=== PATIENT | female | born 1995 | race Two or more races ===

== ENCOUNTER 2018-11-19 15:22 | Emergency (ER) | payer OTHER ==
--- NOTE | 2018-11-19 17:04 | XRAY Report ---
Reason: cough and right lower chest pain. Procedure Date: 11/19/2018 Accession Number: [id number] / [id number] Procedure: XR - Chest 2 View X-Ray CPT Code: 38729 FULL RESULT: EXAM: CHEST RADIOGRAPHY EXAM DATE: 11/19/2018 04:39 PM. CLINICAL HISTORY: Cough and right lower chest pain. COMPARISON: None available. TECHNIQUE: 2 views. FINDINGS: Heart size is normal. No consolidation, pleural effusion, or pneumothorax. IMPRESSION: Normal 2-view chest radiography. [facility]
[2018-11-19] MEDS ORDERED: HYDROcod/ACETAM 5/325 MG TABLET PO STA (17:26)
--- NOTE | 2018-11-19 17:28 | ED Physician Documentation ---
PD HPI CHEST PAIN - Stated complaint Stated Complaint: COUGH/FEVER/SOA - Chief complaint Chief Complaint: Abd Pain - History obtained from History obtained from: Patient - History of Present Illness Quality: Pain Location: Right chest Similar symptoms before: Has not had sx before - Additional information Additional information: The patient is a 23-year-old female who presents with pain in her right lower chest. The pain is worse with coughing or with laughing. She reports having a cough that has been waxing and waning for the past 3 months. It is occasionally productive of sputum. She reports having a fever last week, and one episode of vomiting last week, but none since. She reports decreased appetite. She denies diarrhea or dysuria. Her last menstrual period ended 2 days ago. Her past medical history is significant for T-cell lymphoma that was diagnosed at age 14. She does not smoke cigarettes, but she does vape. Review of Systems Constitutional: reports: Fever (last week.) Nose: reports: Congestion Throat: reports: Sore throat Cardiac: reports: Chest pain / pressure (Right lower chest.) Respiratory: reports: Cough. denies: Dyspnea GI: reports: Vomiting (Last week, but not recently.). denies: Abdominal Pain, Nausea : reports: LMP (Ended 2 days ago.). denies: Dysuria Skin: denies: Rash Musculoskeletal: denies: Extremity pain Neurologic: denies: Focal weakness, Numbness, Headache PD PAST MEDICAL HISTORY - Past Medical History Past Medical History: Yes Cardiovascular: None Respiratory: None Neuro: None Endocrine/Autoimmune: None Other Past Medical History: T cell lymphoma since age of 14 - Present Medications Home Medications: Ambulatory Orders Medication Instructions Recorded Confirmed Benzonatate [Tessalon Perle] 100 - 200 mg PO TID PRN #30 capsule 11/19/18 Hydrocodone/Acetaminophen 1 - 2 each PO Q6H PRN #14 tablet 11/19/18 [Hydrocodon-Acetaminophen 5-325] Ibuprofen [Motrin] 800 mg PO Q8H PRN #30 tablet 11/19/18 - Allergies Allergies/Adverse Reactions: Allergies Allergy/AdvReac Type Severity Reaction Status Date / Time No Known Drug Allergies Allergy Verified 11/19/18 15:37 - Social History Does the pt smoke?: No Smoking Status: Never smoker Additional Social History: Vapes. PD ED PE NORMAL - Vitals Vital signs reviewed: Yes (Borderline hypertension initially.) - General General: Alert and oriented X 3, Well developed/nourished, Other (Intermittently splints her right lower chest wall with her right hand.) - HEENT HEENT: Atraumatic, Pharynx benign - Neck Neck: No adenopathy, No JVD - Cardiac Cardiac: RRR, No murmur - Respiratory Respiratory: Clear bilaterally, Other (Tenderness to palpation of the right lower chest wall, without focal tenderness over individual ribs.) - Abdomen Abdomen: Soft, Non tender, No organomegaly - Back Back: No CVA TTP - Derm Derm: No rash - Extremities Extremities: No edema, No calf tenderness / cord - Neuro Neuro: Alert and oriented X 3, No motor deficit, Normal speech Results - Vitals Vitals: Oxygen O2 Source Room air - Labs Labs: Laboratory Tests 11/19/18 17:55 WBC 4.2 L RBC 4.63 Hgb 14.2 Hct 41.2 MCV 89.0 MCH 30.7 MCHC 34.5 RDW 13.0 Plt Count 240 MPV 8.2 Neut # (Auto) 2.0 Lymph # (Auto) 1.6 [place] # (Auto) 0.3 Eos # (Auto) 0.2 Baso # (Auto) 0.0 Absolute Nucleated RBC 0.00 Nucleated RBC % 0.0 - Rads (name of study) CXR Radiology: Prelim report reviewed, EMP read contemporaneously, See rad report (Normal 2 view chest radiography.) PD MEDICAL DECISION MAKING - ED course Complexity details: reviewed results, re-evaluated patient, considered differential, d/w patient, d/w family ED course: The patient's presentation is most consistent with costochondritis. Chest x-ray reveals no evidence of pneumonia, pneumothorax, and I doubt pulmonary embolus. CBC reveals a normal white blood cell count of 4.2. Treatment in the emergency department included administration of Vicodin, one tablet orally. She is being discharged with prescription for ibuprofen, Tessalon, and Vicodin, 14 tablets. I discussed with her and her mother the diagnosis, symptomatic treatment and outpatient follow-up, as well as potentially worrisome signs or symptoms that should prompt reevaluation in the emergency department. Departure - Departure Disposition: 01 Home, Self Care Clinical Impression: Costochondritis, acute Condition: Stable Instructions: ED Chest Pain Costochondritis Prescriptions: Benzonatate [Tessalon Perle] 100 - 200 mg PO TID PRN #30 capsule PRN Reason: Cough Hydrocodone/Acetaminophen [Hydrocodon-Acetaminophen 5-325] 1 - 2 each PO Q6H PRN #14 tablet PRN Reason: pain Ibuprofen [Motrin] 800 mg PO Q8H PRN #30 tablet PRN Reason: PAIN &/OR FEVER Comments: You can use ibuprofen, up to 800 mg 3 times daily for its anti-inflammatory effect. You can use Tessalon as prescribed if needed for cough. He can use Vicodin as prescribed if needed for more severe pain. Follow-up with primary physician within 1-2 weeks. Call to schedule appointment. Return to the emergency department if you develop increasing pain, shortness of breath, a rash in the distribution where pain occurs, or otherwise worsening symptoms. Forms: Activity restrictions Discharge Date/Time: 11/19/18 18:35
[2018-11-19 18:00] LABS: BASOPHILS % (AUTO) 1.2 %; EOSINOPHILS # (AUTO) 0.2 10^3/uL (0.0-0.7); HGB - HEMOGLOBIN 14.2 g/dL (12.0-16.0); LYMPHOCYTES # (AUTO) 1.6 10^3/uL (1.5-3.5); MEAN CORPUSCULAR HEMOGLOBIN 30.7 pg (27.0-31.0); MEAN CORPUSCULAR HGB CONC 34.5 g/dL (32.0-36.0); MEAN PLATELET VOLUME 8.2 fL (7.9-10.8); MONOCYTES # (AUTO) 0.3 10^3/uL (0.0-1.0); MONOCYTES % (AUTO) 8.3 %; NEUTROPHILS % (AUTO) 47.5 %; PLT - PLATELET COUNT 240 10^3/uL (130-450); RED BLOOD COUNT 4.63 10^6/uL (4.20-5.40); WHITE BLOOD COUNT 4.2 x10^3/uL (4.8-10.8)
[2018-11-19 18:30] VITALS: BP 128/91
== END 2018-11-19 18:35 | disposition home or self-care (01) ==
LOC: ED 15:22
DX: M94.0 Chondrocostal junction syndrome [Tietze] (principal)
CPT/HCPCS: 36415; 71046; 85025; 99283; A9270

== ENCOUNTER 2019-06-14 21:02 | Emergency (ER) | payer OTHER ==
[2019-06-14] MEDS ORDERED: HYDROmorphone 1 MG/ML CARPUJECT IVP STA (21:22)
[2019-06-14] MEDS ORDERED: ONDANSETRON 4 MG/2 ML VIAL IVP STA (21:22)
--- NOTE | 2019-06-14 21:26 | ED Physician Documentation ---
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 She says is worse at night and is keeping her up. She is been nauseous with poor appetite. It does get worse after eating. She is had some loose stools. She has no concern for .) Review of Systems Ten Systems: 10 systems reviewed and negative Constitutional: denies: Fever, Chills Cardiac: denies: Chest pain / pressure, Palpitations Respiratory: denies: Dyspnea, Cough GI: reports: Abdominal Pain, Nausea, Diarrhea. denies: Vomiting PD PAST MEDICAL HISTORY - Past Medical History Cardiovascular: None Respiratory: None Neuro: None Endocrine/Autoimmune: None - Present Medications Home Medications: Ambulatory Orders Medication Instructions Recorded Confirmed Benzonatate [Tessalon Perle] 100 - 200 mg PO TID PRN #30 capsule 11/19/18 Hydrocodone/Acetaminophen 1 - 2 each PO Q6H PRN #14 tablet 11/19/18 [Hydrocodon-Acetaminophen 5-325] Ibuprofen [Motrin] 800 mg PO Q8H PRN #30 tablet 11/19/18 - Allergies Allergies/Adverse Reactions: Allergies Allergy/AdvReac Type Severity Reaction Status Date / Time No Known Drug Allergies Allergy Verified 11/19/18 15:37 - Social History Does the pt smoke?: No Smoking Status: Never smoker PD ED PE NORMAL - Vitals Vital signs reviewed: Yes - General General: Alert and oriented X 3, No acute distress - HEENT HEENT: Other (She is worried because she thinks her eyes are yellow, she is not icteric) - Neck Neck: Supple, no meningeal sign, No bony TTP - Cardiac Cardiac: RRR, No murmur - Respiratory Respiratory: No respiratory distress, Clear bilaterally - Abdomen Abdomen: Other (Modest right upper quadrant tenderness with equivocal Sarkar sign. No right lower quadrant tenderness.) - Back Back: No CVA TTP, No spinal TTP - Derm Derm: Normal color, Warm and dry - Extremities Extremities: No edema, No calf tenderness / cord - Neuro Neuro: Alert and oriented X 3, Normal speech Results - Vitals Vitals: Vital Signs - 24 hr 06/14/19 21:06 Temperature 36.6 C Heart Rate 85 Respiratory 14 Rate Blood Pressure 120/96 H O2 Saturation 100 Oxygen O2 Source Room air - Labs Labs: Laboratory Tests 06/14/19 06/14/19 06/14/19 21:30 21:32 21:32 WBC 5.5 RBC 4.63 Hgb 14.1 Hct 42.8 MCV 92.4 MCH 30.5 MCHC 32.9 RDW 12.6 Plt Count 230 MPV 10.1 Neut # (Auto) 2.8 Lymph # (Auto) 1.9 [place] # (Auto) 0.5 Eos # (Auto) 0.2 Baso # (Auto) 0.0 Absolute Nucleated RBC 0.00 Nucleated RBC % 0.0 Sodium 142 Potassium 3.9 Chloride 106 Carbon Dioxide 25 Anion Gap 11.0 BUN 11 Creatinine 0.8 Estimated GFR (MDRD) 91 Glucose 88 Calcium 9.1 Total Bilirubin 0.7 AST 20 ALT 20 Alkaline Phosphatase 63 Total Protein 7.5 Albumin 4.2 Globulin 3.3 Albumin/Globulin Ratio 1.3 Lipase 23 Urine Color YELLOW Urine Clarity CLEAR Urine pH 6.5 Ur Specific [place] 1.020 Urine Protein NEGATIVE Urine Glucose (UA) NEGATIVE Urine Ketones NEGATIVE Urine Occult Blood LARGE H Urine Nitrite NEGATIVE Urine Bilirubin NEGATIVE Urine Urobilinogen 0.2 (NORMAL) Ur Leukocyte Esterase NEGATIVE Urine RBC TNTC H Urine WBC 0-3 Ur Squamous Epith Cells FEW Squamous Urine Bacteria Rare Urine Mucus Few Strands Ur Microscopic Review INDICATED Urine Culture Comments NOT INDICATED Urine HCG, Qual NEGATIVE PD MEDICAL DECISION MAKING - ED course ED course: 23-year-old woman with history of cutaneous T-cell lymphoma presents with 4 days of right-sided abdominal pain, initial examination was most consistent with biliary source, however her labs and ultrasound were negative for same. She was feeling better after medications. Given the hematuria and history of T-cell lymphoma this was followed by a CT scan to look for evidence of ureteral stone or systemic recurrence of her T-cell lymphoma. Case signed out by me to Dr. Talbot at 11 PM to follow-up on the CT anticipate disposition her at that point. If there are no significant findings she can safely be discharged. Departure - Departure Clinical Impression: Abdominal pain Condition: Good Record reviewed to determine appropriate education?: Yes Instructions: ED Abdominal Pain Appendx Poss Comments: Return in 12 hours if not better, anytime for new or worsening symptoms.
[2019-06-14 21:39] LABS: BASOPHILS % (AUTO) 0.5 %; EOSINOPHILS # (AUTO) 0.2 10^3/uL (0.0-0.7); EOSINOPHILS % (AUTO) 3.8 %; HGB - HEMOGLOBIN 14.1 g/dL (12.0-16.0); LYMPHOCYTES # (AUTO) 1.9 10^3/uL (1.5-3.5); LYMPHOCYTES % (AUTO) 34.7 %; MEAN CORPUSCULAR HEMOGLOBIN 30.5 pg (27.0-31.0); MEAN CORPUSCULAR HGB CONC 32.9 g/dL (32.0-36.0); MEAN CORPUSCULAR VOLUME 92.4 fL (81.0-99.0); MEAN PLATELET VOLUME 10.1 fL (7.9-10.8); MONOCYTES # (AUTO) 0.5 10^3/uL (0.0-1.0); MONOCYTES % (AUTO) 9.5 %; NEUTROPHILS # (AUTO) 2.8 10^3/uL (1.5-6.6); NEUTROPHILS % (AUTO) 51.3 %; PLT - PLATELET COUNT 230 10^3/uL (130-450); RED BLOOD COUNT 4.63 10^6/uL (4.20-5.40); RED CELL DISTRIBUTION WIDTH 12.6 % (12.0-15.0); WHITE BLOOD COUNT 5.5 x10^3/uL (4.8-10.8)
[2019-06-14 21:48] LABS: BILIRUBIN,URINE NEGATIVE (NEGATIVE); GLUCOSE, URINE (UA) NEGATIVE (NEGATIVE); KETONES,URINE (UA) NEGATIVE (NEGATIVE); LEUKOCYTE ESTERASE, URINE NEGATIVE (NEGATIVE); NITRITE,URINE NEGATIVE (NEGATIVE); OCCULT BLOOD,URINE LARGE (NEGATIVE); PH,URINE 6.5 PH (5.0-7.5); PROTEIN,URINE NEGATIVE (NEGATIVE); UROBILINOGEN,URINE 0.2 (NORMAL) E.U./dL (NORMAL)
[2019-06-14 21:53] LABS: ALBUMIN 4.2 g/dL (3.2-5.5); ALBUMIN/GLOBULIN RATIO 1.3 (1.0-2.2); BILIRUBIN,TOTAL 0.7 mg/dL (0.2-1.0); CALCIUM 9.1 mg/dL (8.5-10.3); CREATININE 0.8 mg/dL (0.4-1.0); TOTAL PROTEIN 7.5 g/dL (6.7-8.2)
[2019-06-14 21:56] LABS: BACTERIA,URINE Rare /HPF (None Seen); CLARITY,URINE CLEAR (CLEAR); HCG UR QUAL NEGATIVE; RBC,URINE TNTC /HPF (0-5); SQUAMOUS EPITHELIAL CELL,UR FEW Squamous (<= Few)
[2019-06-14 21:57] LABS: MUCUS,URINE Few Strands
[2019-06-14] MEDS ORDERED: KETOROLAC 30 MG/ML VIAL IVP STA (22:29)
--- NOTE | 2019-06-14 22:58 | ED Physician Documentation ---
ED Addendum - Addendum Addendum: Patient received in signout from Dr. Jackson. This is a 23-year-old female presenting with right-sided abdominal pain. She does have a history of cutaneous T-cell lymphoma. Her ultrasound is negative for hydronephrosis and cholelithiasis, labs are unremarkable, we are awaiting the results of the CT scan. CT resulted showing no signs of appendicitis or acute abdominal pathology. The ovaries are normal in appearance, without significant cysts, making torsion unlikely. Additionally patient's abdominal pain is on the right lateral mid abdomen, and not specifically in the right lower quadrant, making torsion less likely. She has a normal oxygen saturation and a normal heart rate, her pain is in her abdomen and not in her chest, she is no shortness of breath, her clinical presentation makes pulmonary embolism exceedingly unlikely. I did discuss with patient the diagnostic uncertainty, and that if she has continued discomfort, or any worsening she needs to return to the emergency department. I discussed the option of a pelvic ultrasound today, patient will prefer to wait and will follow up with her PCP and potentially an [employer] [employer]. I did discuss that she has a fibroid on her uterus, though I feel this is unlikely to be related to her symptoms today. I prescribed her Zofran for nausea, once again discussed return precautions and patient was discharged in the care of her mother. 06/14/19 22:59 06/14/19 23:47 06/15/19 00:13 Departure - Departure Disposition: 01 Home, Self Care Discharge Problem: Abdominal pain Qualifiers: Abdominal location: unspecified location Qualified Code(s): R10.9 - Unspecified abdominal pain Condition: Good Instructions: ED Abdominal Pain Appendx Poss Follow-Up: Provider,Other [Primary Care Provider] - Within 3 Days (For follow up on abdominal pain) Comments: You were seen today for abdominal pain, we did not see an obvious cause of your abdominal pain on your ultrasound, labs, or CT. Please follow-up closely with your primary care provider, if you have any new or worsening symptoms return to the emergency department.
--- NOTE | 2019-06-14 23:05 | Ultrasound Report ---
Reason: RUQ pain Procedure Date: 06/14/2019 Accession Number: [id number] / [id number] Procedure: US - Abdomen Limited CPT Code: FULL RESULT: EXAM: ABDOMEN ULTRASOUND LIMITED, RUQ EXAM DATE: 06/14/2019 10:25 PM. CLINICAL HISTORY: RUQ pain. COMPARISON: None. TECHNIQUE: Real-time scanning was performed with static images obtained. FINDINGS: Liver: Unremarkable echotexture. Length is 13.2 cm. Main portal vein flow: Hepatopetal. Gallbladder: No stones, wall thickening, or sonographic Sarkar's sign. Biliary System: CBD measures 3 mm. No intrahepatic ductal dilatation. Other: Right kidney demonstrates no hydronephrosis. Visualized portions of the pancreas are unremarkable. IMPRESSION: No acute sonographic abnormalities. [facility]
[2019-06-14] MEDS ORDERED: IOVERSOL 320 100 ML VIAL IVP ONE ×2 (23:16→23:25)
--- NOTE | 2019-06-14 23:57 | CT Report ---
Reason: IV only, R abd pain Procedure Date: 06/14/2019 Accession Number: [id number] / [id number] Procedure: CT - Abdomen/Pelvis W CPT Code: FULL RESULT: EXAM: CT ABDOMEN AND PELVIS EXAM DATE: 06/14/2019 11:28 PM CLINICAL HISTORY: Right-sided abdominal pain. COMPARISONS: None. TECHNIQUE: Routine helical CT imaging was performed through the abdomen and pelvis. IV contrast: 100 mL Optiray 320. Enteric contrast: No. Reconstructions: Coronal and sagittal. In accordance with CT protocol optimization, one or more of the following dose reduction techniques were utilized for this exam: automated exposure control, adjustment of mA and/or KV based on patient size, or use of iterative reconstructive technique. FINDINGS: ABDOMEN: Liver: No significant abnormality. Stomach/Distal Esophagus: No significant abnormality. Gallbladder: No significant abnormality. Bile Ducts: No significant abnormality. Pancreas: No significant abnormality. Spleen: No significant abnormality. Kidneys: No suspicious solid appearing lesion. No hydronephrosis. Adrenals: No significant abnormality. Bowel: No obstruction. Average fecal residual. Appendix: Normal. Lymph Nodes: No pathologically enlarged nodes. Vasculature: Normal caliber aorta. Fluid: No significant free fluid. Abdominal Wall: No significant abnormality. Other: No significant abnormality. PELVIS: Uterus and Ovaries: There is a homogeneous enhancing lesion arising from the right posterolateral portion of the uterine fundus/body region measuring 2.2 cm (image 72 series 3), suggestive of a subserosal or pedunculated leiomyoma. Normal physiologic appearance of the ovaries noted bilaterally. Bladder: Bladder is decompressed, precluding assessment. Lymph Nodes: No pathologically enlarged nodes. Fluid: Trace free fluid, within physiologic limits. Other: Vaginal tampon is noted. BONES: No suspicious bony lesions. LOWER CHEST: No significant consolidation or effusion. IMPRESSION: 1. No acute abdominal or pelvic abnormality. Appendix is normal. Ovaries are normal in appearance, effectively excluding torsion. 2. Incidentally noted 2.2 cm pedunculated versus subserosal right posterolateral uterine fundus/body region leiomyoma. [facility]
[2019-06-14] MEDS ORDERED: oxyCODONE 5 MG TABLET PO STA (23:58)
[2019-06-14] MEDS ORDERED: ACETAMINOPHEN 325 MG TABLET PO STA (23:59)
[2019-06-15] MEDS ORDERED: ACETAMINOPHEN 500 MG TABLET PO STA (00:03)
[2019-06-15 00:26] VITALS: BP 121/76
== END 2019-06-15 00:26 | disposition home or self-care (01) ==
LOC: ED 21:02
DX: R10.11 Right upper quadrant pain (principal); R11.0 Nausea; R19.7 Diarrhea, unspecified; R31.9 Hematuria, unspecified; Z85.72 Personal history of non-Hodgkin lymphomas
CPT/HCPCS: 36415; 74177; 76705; 80053; 81001; 81025; 83690; 85025; 96374; 96375; 99284; A9270; J1170; Q9967; 81003; 87086

== ENCOUNTER 2019-10-21 08:00 | Outpatient (CLI) | payer BC, OTHER ==
[2019-10-21 23:05] LABS: CANDIDA GROUP DNA NEGATIVE (NEGATIVE); CANDIDA KRUSEI DNA NEGATIVE (NEGATIVE); TRICHOMONAS VAGINALIS DNA NEGATIVE (NEGATIVE)
== END 2019-10-21 23:59 | disposition home or self-care (01) ==
LOC: LAB.R 08:00
PROVIDERS: ATTEND Nurse Practitioner Obstetrics & Gynecology
DX: N89.8 Other specified noninflammatory disorders of vagina (principal)
CPT/HCPCS: 87661; 87801